=== PATIENT | male | born 1975 | race Caucasian/White ===

== ENCOUNTER 2023-09-23 17:56 | Emergency (ER) | payer OTHER ==
[2023-09-23] MEDS ORDERED: Sodium Chloride 0.9% 10 ML Syringe FLUSH PRN (18:30)
[2023-09-23] MEDS: Sodium Chloride 0.9% 1,000 ML IV SCH (18:40)
[2023-09-23 19:08] LABS: BASOPHILS ABSOLUTE AUTO 0.06 K/uL (0.02-0.10); BASOPHILS PERCENT AUTO 0.9 % (0.0-0.5); EOSINOPHILS ABSOLUTE AUTO 0.25 K/uL (0.04-0.40); EOSINOPHILS PERCENT AUTO 3.7 % (1.0-5.0); HEMATOCRIT 41.7 % (40.0-54.0); HEMOGLOBIN 14.4 g/dL (13.0-18.0); LYMPHOCYTES ABSOLUTE AUTO 2.66 K/uL (1.50-4.00); LYMPHOCYTES PERCENT AUTO 39.9 % (20.0-40.0); MEAN CORPUSCULAR HEMOGLOBIN 33.8 pg (27.0-32.0); MEAN CORPUSCULAR HGB CONC 34.5 g/dL (31.0-35.0); MEAN CORPUSCULAR VOLUME 98 fL (76-96); MEAN PLATELET VOLUME 10.4 fL (6.0-10.0); MONOCYTES ABSOLUTE AUTO 0.74 K/uL (0.20-0.80); MONOCYTES PERCENT AUTO 11.1 % (3.0-10.0); NEUTROPHILS ABSOLUTE AUTO 2.96 K/uL (2.00-7.50); NEUTROPHILS PERCENT AUTO 44.4 % (45.0-70.0); PLATELET COUNT,PLT 159 K/uL (150-400); RED BLOOD CELL COUNT 4.26 M/uL (4.50-6.50); RED CELL DISTRIBUTION WIDTH 13.1 % (11.0-16.0); WHITE BLOOD CELL COUNT,WBC 6.7 K/uL (4.0-11.0)
[2023-09-23 19:27] VITALS: PULSE 69
[2023-09-23 19:28] LABS: A/G RATIO 1.2 (0.8-2.0); ALBUMIN 3.5 g/dL (3.4-5.0); ANION GAP 13.5 mmol/L (5.0-15.0); BILIRUBIN TOTAL 0.9 mg/dL (0.0-1.0); BUN/CREATININE RATIO 10.6 (6-25); CALCIUM 7.9 mg/dL (8.5-10.1); CARBON DIOXIDE,CO2 23.6 mmol/L (21.0-32.0); CREATININE 1.13 mg/dL (0.70-1.30); EST CRCL DRUG DOSING (CG) 79.08 mL/min; MAGNESIUM 1.8 mg/dL (1.8-2.4); POTASSIUM,K 4.1 mmol/L (3.5-5.1); PROTEIN TOTAL,TP 6.3 g/dL (6.4-8.2); TROPONIN I HIGH SENSITIVITY 6.1 pg/ml (<=60.4)
[2023-09-23 19:59] VITALS: BP 116/77
== END 2023-09-23 19:55 | disposition home or self-care (01) ==
LOC: LB.ED 17:56
DX: R11.10 Vomiting, unspecified (principal); Z88.0 Allergy status to penicillin
CPT/HCPCS: 36415; 80053; 83735; 84484; 85025; 93005; 93010; 96360; 99283; 99284-25; J7030